=== PATIENT | male | born 1955 | race Caucasian/White ===

== ENCOUNTER 2016-07-24 21:40 | Emergency (ER) | payer BC ==
[~2016-07-24] VITALS: Ht 182.9 cm; Wt 97.5 kg
--- NOTE | 2016-07-24 21:46 | NUR ---
BIBA TO ER BED 6
[2016-07-24 21:52] VITALS: BP 161/94
--- NOTE | 2016-07-24 21:52 | NUR ---
PT BIBA C/O SEVERE LOWER BACK PAIN SINCE 5 PM TODAY, PT DX WITH KIDNEY STONES [address] [facility] PT HAD A URETHRAL SHUNT REMOVED YESTERDAY AT [facility]. PT HAS BEEN SEEN IN [facility] ER 4 TIMES IN THE LAST 36 HOURS FOR THIS PROBLEM. HX HTN. PT TOOK [place]CO TODAY AT 5PM AND 8PM WITYH NO RELIEF OF PAIN. PT TAKES AMLODIPINE AT HOME FOR HTN. DENIES N/V/D; SKIN IS PINK/WARM/DRY; AAOX4 WITH EVEN AND STEADY GAIT; LUNGS CLEAR BL; HR EVEN AND REGULAR; PT DENIES ANY FEVER, CP, SOB, OR COUGH AT THIS TIME; PATIENT STATES PAIN OF 10/10 AT THIS TIME; VSS; PATIENT POSITIONED FOR COMFORT; HOB ELEVATED; BEDRAILS UP X2; BED DOWN. ER MD MADE AWARE OF PT STATUS.
[2016-07-24] MEDS ORDERED: NACL 0.9% 1,000 ML IV ONE (22:15)
[2016-07-24] MEDS ORDERED: KETOROLAC 30 MG/ML VIAL IVP ONE (22:15)
[2016-07-25 01:10] VITALS: BP 161/94
--- NOTE | 2016-07-25 01:10 | NUR ---
Patient discharged with v/s stable. Written and verbal after care instructions given and explained. Patient verbalized understanding. Ambulatory with steady gait. All questions addressed prior to discharge. Advised to follow up with PMD.
== END 2016-07-25 01:10 | disposition home or self-care (01) ==
LOC: MED 21:40
DX: N20.0 Calculus of kidney (principal); I10 Essential (primary) hypertension
CPT/HCPCS: 96361; 96374; 99284; J1885; J7030